=== PATIENT | male | born 1960 | race African-American/Black ===

== ENCOUNTER 2022-11-17 14:28 | Outpatient (CLI) | payer OTHER | END 2022-11-17 14:29 | disposition home or self-care (01) | LOC: CSHMRI 14:28 | PROVIDERS: ATTEND Neurological Surgery | DX: M47.12 Other spondylosis with myelopathy, cervical region (principal); R93.7 Abnormal findings on diagnostic imaging of other parts of musculoskeletal system; M48.02 Spinal stenosis, cervical region | CPT/HCPCS: 72141 ==

== ENCOUNTER 2022-11-24 12:49 | Outpatient (CLI) | payer OTHER | END 2022-11-24 12:50 | disposition home or self-care (01) | LOC: CSHRAD 12:49 | PROVIDERS: ATTEND Neurological Surgery | DX: M47.12 Other spondylosis with myelopathy, cervical region (principal); Z98.890 Other specified postprocedural states | CPT/HCPCS: 72050 ==